=== PATIENT | male | born 1985 | race African-American/Black ===

== ENCOUNTER 2022-12-13 06:34 | Emergency (ER) | payer OTHER, SELFPAY ==
--- NOTE | ~2022-12-13 | XR_ITS ---
EXAMINATION: XR CHEST CLINICAL INFORMATION: Chest pain. COMPARISON: None available. TECHNIQUE: 2 views of the chest were obtained. FINDINGS: The lungs are well expanded. No focal consolidation. No pleural effusion. Cardiac silhouette is within normal limits. XR/XR chest 2V IMPRESSION: No acute abnormality.
--- NOTE | 2022-12-13 06:41 | ECG_ITS ---
Test Reason : CHEST PAIN Blood Pressure : / mmHG Vent. Rate : 075 BPM Atrial Rate : 075 BPM P-R Int : 176 ms QRS Dur : 082 ms QT Int : 360 ms P-R-T Axes : 076 066 060 degrees QTc Int : 402 ms Normal sinus rhythm Normal ECG No previous ECGs available Referred By: Generic ED Physician Electronically Signed By:Jayesh Soliman
--- NOTE | 2022-12-13 06:44 | ED.GENADULT ---
HPI - General Adult General Chief complaint: Chest Pain Stated complaint: chest pain diff breathing Time Seen by Provider: 12/13/22 06:45 Source: patient Mode of arrival: ambulatory Limitations: no limitations History of Present Illness HPI narrative: Patient is a 36-year-old male with no reported past medical history presenting to the emergency department with complaint of midsternal chest pain since Tuesday. 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 States his symptoms began while moving furniture and worsened with this activity. Upon arrival to ED reported shortness of breath, however, when clarified he states that last night he noted that his pain worsened with breathing. He denies any recent cough or fevers. Denies any personal or family history of blood clots. Denies any calf pain, swelling or tenderness. He denies any abdominal pain, nausea or vomiting. He describes his pain as aching, intermittent, and worse with movement. He reports using naproxen for his discomfort with temporary relief. MD complaint: Chest pain Onset (ago): day(s) Location: chest Radiation: non-radiation Quality: aching Pain Consistency: intermittent Relieving factors: rest Exacerbating factors: movement Associated symptoms: denies other symptoms Treatments prior to arrival: NSAID Related Data Allergies Allergy/AdvReac Type Severity Reaction Status Date / Time No Known Allergies Allergy Verified 12/13/22 07:08 Review of Systems Review of Systems: As per HPI. Yes all other systems are reviewed and are negative Constitutional: Constitutional: Reports as per HPI PMF Social History Social History Smoked in Last 30 Days: No Use of substances other than those prescribed or required for medical reasons: No Advance Directives: No Advance Directives Information Provided: No Physical Exam ED Vital Signs: Vital Signs - 24 hr 12/13/22 07:08 Temperature 98.8 F Pulse Rate 68 Respiratory Rate 12 Pulse Oximetry 98 Oxygen Delivery Method Room Air BMI result Body Mass Index 25.2 Vital signs have been reviewed and appear to be correct. Blood pressure normal. Heart rate normal. Respiratory rate normal. Temperature normal. Oxygen saturation normal. Const General: cooperative, healthy appearing and no acute distress Orientation/consciousness: oriented to person, oriented to place, oriented to time and patient oriented x3 Limitations: no limitations HENMT Head: Yes normocephalic and Yes atraumatic Ears: external ears normal General nose exam: Normal external nose present Face and sinus: Yes face symmetric Mouth: oropharynx normal and moist mucous membranes Throat: Yes uvula midline Eyes Pupils: Equal, round and reactive pupils present Neck Neck: Yes normal visual inspection and Yes supple Chest Chest palpation & inspection: normal inspection of the chest and tenderness (costosternal joints) Resp Effort & Inspection: normal respiratory effort and able to speak in complete sentences Auscultation: clear to auscultation bilaterally Cardio Rate: regular rate Rhythm: regular rhythm Heart sounds: S1 normal heart sound present and S2 normal heart sound present GI Palpation (GI): Soft to palpation and nontender Auscultation: normoactive bowel sounds General: Yes no CVA tenderness Back/Spine/Pelvis Back: no CVA tenderness Skin General skin exam: elasticity normal and turgor normal Neuro General: oriented to person, oriented to place, oriented to time, patient oriented x3, moves all extremities, no focal motor deficits and CN's II-XI intact bilaterally Cranial nerves: Yes Equal, round and reactive pupils present Cognition (Neuro): normal cognition Extrem General: Yes full ROM, Yes no pedal edema and Yes no calf tenderness Psych Mental Status: mental status grossly normal Affect: normal affect Thought process: Normal thought process present Medical Decision Making Medical Decision Making MDM Narrative: Patient is a 36-year-old male with no reported past medical history presenting to the emergency department with complaint of midsternal chest pain since Tuesday. On exam patient is awake, A+Ox3, VS WNL, afebrile, normal neurological exam without focal deficits, RRR, LS CTA throughout, tenderness over costosternal joints, abdomen soft and nontender, no calf swelling or tenderness. Given reported symptoms and physical exam findings, differential includes ACS, costochondritis, pneumothorax. Less likely pneumonia. PE unlikely based on PERC rule. Labs notable for no leukocytosis, negative troponin. HEART score 0. X-ray notable for no acute abnormalities. My interpretation is in agreement with the radiologist's interpretation. Feel patient is stable for discharge home at this time, symptoms likely related to costochondritis. All results discussed and all questions answered. Return precautions discussed at bedside. Advised Tylenol and ibuprofen as needed for pain. Instructed patient to follow-up with PCP. Patient verbalized understanding of an agreement of plan. Differential Diagnosis Differential Diagnoses: The differential diagnosis associated with the presentation includes costochondritis, ACS, pneumonia, pneumothorax Admission/Observation Consideration of admission/observation: Escalation of care including admission/observation considered Considered on arrival based on complaint of chest pain. Lab Data MDM Lab Attestation statement: I reviewed the patient's lab results. no leukocytosis, negative troponin 12/13/22 07:26 12/13/22 07:26 Labs: Lab Results 12/13/22 12/13/22 12/13/22 Range/Units 07: 07: 07:26 WBC 7.0 (4.8-10.8) X10*3/uL RBC 4.70 (4.60-5.80) X10*6/uL Hgb 14.1 (14.0-18.0) g/dl Hct 42.9 (42.0-52.0) % MCV 91.3 (80.0-98.0) fL MCH 30.0 (27.0-33.0) pg MCHC 32.9 (31.0-36.0) g/dl RDW 13.8 (11.0-16.0) % Plt Count 179 (160-400) X10*3/uL MPV 11.9 (9.4-12.4) fL Immature Gran % (Auto) Cancelled Neut % (Auto) Cancelled Lymph % (Auto) Cancelled [place] % (Auto) Cancelled Eos % (Auto) Cancelled Baso % (Auto) Cancelled Lymph # (Auto) Cancelled [place] # (Auto) Cancelled Eos # (Auto) Cancelled Baso # (Auto) Cancelled Abs Immat Gran (auto) Cancelled Absolute Neuts (auto) Cancelled Absolute Nucleated RBC 0.000 (0.0-0.012) X10*3/uL Nucleated RBC % (auto) 0.0 (0.0-0.2) /100WBC Neutrophils % (Manual) 78 H (45-73) % Band Neutrophils % 0 L (3-5) % Lymphocytes % (Manual) 14 L (20-40) % Monocytes % (Manual) 3 (2-11) % Eosinophils % (Manual) 3 (0-4) % Basophils % (Manual) 2 (0-2) % Abs Neuts (Manual) 5.5 (2.0-8.3) X10*3/uL Lymphocytes # (Manual) 1.0 L (1.2-4.9) X10*3/uL Monocytes # (Manual) 0.2 (0.1-1.2) X10*3/uL Eosinophils # (Manual) 0.2 (0.0-0.4) X10*3/uL Basophils # (Manual) 0.1 (0.0-0.2) X10*3/uL Platelet Estimate NORMAL (NORMAL) Plt Morphology Comment NORMAL RBC Morphology NORMAL Sodium 141 (135-145) mmol/L Potassium 4.2 (3.3-5.1) mmol/L Chloride 108 (96-108) mmol/L Carbon Dioxide 26 (22-29) mmol/L Anion Gap 11 L (12-20) BUN 10 (9-16) mg/dL Creatinine 1.06 (0.5-1.4) mg/dL Estim Creat Clear Calc 104.5 Estimated GFR > 60 Random Glucose 117 H (60-115) mg/dL Calcium 9.4 (8.4-10.2) mg/dL Troponin I High Sens < 2.7 (<3.5-35.0) ng/L Independent Interpretation I performed an independent interpretation of an: EKG and Plain X-Ray Interpretation: EKG: Normal sinus rhythm. Rate 75bpm. Normal CO and QT intervals. No evidence of STEMI. CXR: no acute findings Radiology Impression Discussion of test interpretation with radiology: I have reviewed the radiologist's reading. Radiologist Impression: XR/XR chest 2V IMPRESSION: No acute abnormality. External Record Review External record reviewed: Inpatient record, Office record and Outpatient record Scores Heart Score History: -0- slightly suspicious ECG: -0- normal Age: -0- < or = 45 Risk factory: -0- no risk factors known Troponin: -0- < or = normal limit Score: 0 Risk: 1.7% Discharge Plan Discharge Clinical Impression: Chest pain, Acute costochondritis Patient Disposition: Home, Self-Care Instructions: Costochondritis (ED), Chest Pain (DC) Additional Instructions: You were evaluated in the emergency department today for chest pain. Your evaluation has shown no signs of medical conditions requiring emergent intervention at this time, however we recommend that you follow-up with your primary care physician. Your symptoms are likely related to costochondritis. You can use 600mg ibuprofen or 650mg Tylenol as needed for pain. If necessary may alternate these medications every 4 hours. For example, at noon take ibuprofen, then at 4:00 p.m. take Tylenol, then at 8:00 p.m. take ibuprofen. Return to the emergency department if you experience worsening or uncontrolled chest pain, shortness of breath, lightheadedness, feeling faint, loss of consciousness, nausea, vomiting, or any other concerning symptoms.
[2022-12-13 07:08] VITALS: PULSE 68; RESP 12; TEMP 37.1; O2SAT 98; BMI 25.2
[2022-12-13 07:33] LABS: Hematocrit 42.9 % (42.0-52.0); Hemoglobin 14.1 g/dl (14.0-18.0); Mean Corpuscular HGB Conc 32.9 g/dl (31.0-36.0); Mean Corpuscular Volume 91.3 fL (80.0-98.0); Mean Platelet Volume 11.9 fL (9.4-12.4); Platelet Count 179 X10*3/uL (160-400); Red Cell Distribution Width 13.8 % (11.0-16.0); WBC ABN SCTR FOR CBC 1
[2022-12-13 07:44] LABS: Anion Gap 11 (12-20); Blood Urea Nitrogen 10 mg/dL (9-16); Calcium 9.4 mg/dL (8.4-10.2); Carbon Dioxide 26 mmol/L (22-29); Chloride 108 mmol/L (96-108); Creatinine Clr Calc Pharmacy 104.5; Estimated Glomerular Filt Rate > 60; Glucose Random 117 mg/dL (60-115); Potassium 4.2 mmol/L (3.3-5.1); Sodium 141 mmol/L (135-145)
[2022-12-13 07:58] LABS: Basophils Percent Manual 2 % (0-2); Eosinophils Percent Manual 3 % (0-4); Lymphocytes Percent Manual 14 % (20-40); Monocytes Percent Manual 3 % (2-11); Neutrophils Percent Manual 78 % (45-73)
[2022-12-13 08:01] LABS: Platelet Estimate NORMAL (NORMAL); Platelet Morphology Comment NORMAL; RBC Morphology NORMAL
[2022-12-13 08:02] LABS: Basophils Abs Manual 0.1 X10*3/uL (0.0-0.2); Eosinophils Absolute Manual 0.2 X10*3/uL (0.0-0.4); Monocytes Absolute Manual 0.2 X10*3/uL (0.1-1.2)
[2022-12-13 08:05] LABS: Troponin-I High Sensitivity < 2.7 ng/L (<3.5-35.0)
[2022-12-13 08:32] LABS: Band Neutrophils Percent 0 % (3-5); Neutrophils Absolute Manual 5.5 X10*3/uL (2.0-8.3)
== END 2022-12-13 09:44 | disposition home or self-care (01) ==
PROVIDERS: Emergency Provider Emergency Medicine; PCP Nurse Practitioner Family
DX: Z04.2 Encounter for examination and observation following work accident (principal); M94.0 Chondrocostal junction syndrome [Tietze]; R07.9 Chest pain, unspecified; R06.02 Shortness of breath
CPT/HCPCS: 36415; 71046; 80048; 84484; 85007; 85027; 93005; 99284; 99285

== ENCOUNTER → 2022-12-13 06:41 | Outpatient (BNV) | payer SELFPAY | PROVIDERS: Emergency Provider Emergency Medicine; PCP Nurse Practitioner Family; Visit Provider Internal Medicine Cardiovascular Disease | DX: R07.9 Chest pain, unspecified (principal) | CPT/HCPCS: 93010 ==

== ENCOUNTER 2024-10-10 17:17 | Emergency (ER) | payer OTHER, SELFPAY ==
[2024-10-10 17:29] VITALS: BP 122/90; PULSE 95; RESP 18; TEMP 36.6; O2SAT 97; BMI 22.9
--- NOTE | 2024-10-10 17:29 | ED.GENADULT ---
HPI - General Adult General Chief complaint: General Medical Stated complaint: high blood pressure 151/101 Time Seen by Provider: 10/10/24 19:25 Source: patient Mode of arrival: ambulatory Limitations: no limitations History of Present Illness ED Provider: HPI narrative: Patient's strong family history of hypertension but patient does not have any hypertension in the past at dentist's office prior to procedure blood pressure was elevated to 151/101 patient is asymptomatic as such no chest pain no shortness a breath not on any caffeinated drinks on arrival in the ED patient's blood pressure was 142/90 Related Data Allergies Allergy/AdvReac Type Severity Reaction Status Date / Time No Known Allergies Allergy Verified 10/10/24 17:30 Review of Systems Review of Systems: Yes all other systems are reviewed and are negative [facility] Social History Social History Smoked in Last 30 Days: No Use of substances other than those prescribed or required for medical reasons: No Advance Directives: No Advance Directives Information Provided: Yes Do you have a plan to hurt others: No Plan Physical Exam ED Vital Signs: Vital Signs - 24 hr 10/10/24 17:29 10/10/24 19:14 10/10/24 20:18 Temperature 98 F 97.9 F Pulse Rate 95 73 59 Respiratory Rate 18 16 Blood Pressure 122/90 H 131/92 H 138/86 Pulse Oximetry 97 100 Oxygen Delivery Method Room Air Room Air 10/10/24 20:42 Temperature 97.9 F Pulse Rate 59 Respiratory Rate 16 Blood Pressure 138/86 Pulse Oximetry 100 Oxygen Delivery Method Room Air BMI result Body Mass Index 22.9 Appearance: Alert. Oriented X3. No acute distress. Eyes: PERRLA, No Nystagmus ENT: Pharynx normal. Oral Mucosa moist Neck: Normal inspection. Neck supple. CVS: Normal heart rate and rhythm. Pulses normal. Respiratory: No respiratory distress. Equal air entry bilateral, no wheezing/rales/rhonchi Abdomen: Soft and nontender. Bowel sounds are present, no mass palpable, no CVA tenderness Skin: Skin warm and dry. Normal skin color. Normal skin turgor. Extremities: No lower extremity edema. No calf tenderness Neuro: Oriented X 3. No motor deficit. No sensory deficit.No cerebellar signs , cranial nerves II-XII intact Course Course Course Narrative: This is a rapid medical exam performed by Hina Burton NP: Additional HPI, ROS, PE not included below will be deferred to primary provider. Patient is a 38-year-old male presenting with report of elevated blood pressure reading at the dentist (150/100). Denies hx of HTN. No pain at this time. 122/90 here. Sees PCP annually, never been told his BP was high before. Was feeling somewhat stressed there as he had to get to work. Plan: EKG, labs Medical Decision Making Medical Decision Making MDM Narrative: Patient's transient hypotension during stay in the ER patient's blood pressure improved to 135/86 does have a strong family history of hypotension patient advised to decrease the salt intake and follow with PCP in 2 weeks and check blood pressure twice a day Lab Data [facility] Lab Attestation statement: I reviewed the patient's lab results. 10/10/24 17:57 10/10/24 17:57 Labs: Lab Results 10/10/24 Range/Units 17:57 WBC 8.2 (4.8-10.8) X10*3/uL RBC 4.56 L (4.60-5.80) X10*6/uL Hgb 13.6 L (14.0-18.0) g/dl Hct 41.3 L (42.0-52.0) % MCV 90.6 (80.0-98.0) fL MCH 29.8 (27.0-33.0) pg MCHC 32.9 (31.0-36.0) g/dl RDW 13.6 (11.0-16.0) % Plt Count 187 (160-400) X10*3/uL MPV 11.6 (9.4-12.4) fL Immature Gran % (Auto) 0.9 H (0.0-0.4) % Neut % (Auto) 66.1 (45-73) % Lymph % (Auto) 23.2 (20-40) % [place] % (Auto) 5.6 (2-11) % Eos % (Auto) 3.6 (0-4) % Baso % (Auto) 0.6 (0-2) % Lymph # (Auto) 1.9 (1.2-4.9) X10*3/uL [place] # (Auto) 0.5 (0.1-1.2) X10*3/uL Eos # (Auto) 0.3 (0.0-0.4) X10*3/uL Baso # (Auto) 0.1 (0.0-0.2) X10*3/uL Abs Immat Gran (auto) 0.07 H (0.00-0.03) X10*3/uL Absolute Neuts (auto) 5.4 (2.0-8.3) x10*3/uL Absolute Nucleated RBC 0.000 (0.0-0.012) X10*3/uL Nucleated RBC % (auto) 0.0 (0.0-0.2) /100WBC Sodium 140 (135-145) mmol/L Potassium 4.0 (3.3-5.1) mmol/L Chloride 110 H (96-108) mmol/L Carbon Dioxide 24 (22-29) mmol/L Anion Gap 10 L (12-20) BUN 10 (9-16) mg/dL Creatinine 0.99 (0.5-1.4) mg/dL Estim Creat Clear Calc 108.5 Estimated GFR > 60 Random Glucose 94 (60-115) mg/dL Calcium 8.9 (8.4-10.2) mg/dL Total Bilirubin 0.5 (0.0-1.0) mg/dL AST 28 (5-37) U/L ALT 31 (0-40) U/L Alkaline Phosphatase 90 (39-117) U/L Troponin I High Sens < 2.7 (<3.5-35.0) ng/L Total Protein 6.8 (6.5-8.0) g/dL Albumin 4.0 (3.5-5.0) g/dL Independent Interpretation I performed an independent interpretation of an: EKG Interpretation: Normal sinus rhythm heart rate 83 beats per minute LVH no acute STT wave changes no acute ischemia Discharge Plan Discharge Clinical Impression: Hypertension Patient Disposition: Home, Self-Care Instructions: Low-Sodium Diet (ED), Hypertension (ED) Additional Instructions: Possible you have borderline hypertension Decrease salt intake Check blood pressure twice a day it should be less than 135/85 if blood pressure persistently high follow up with your PCP for treatment Interventions: ED Discharge Assessment Last Done: 10/10/24 20:42 Discharge Date/Time: 10/10/24 20:43 Print Language: American
--- NOTE | 2024-10-10 17:31 | ECG_ITS ---
Test Reason : HYPERTENTION Blood Pressure : */* mmHG Vent. Rate : 83 BPM Atrial Rate : 83 BPM P-R Int : 164 ms QRS Dur : 78 ms QT Int : 338 ms P-R-T Axes : 80 57 42 degrees QTcB Int : 397 ms Normal sinus rhythm Minimal voltage criteria for LVH, may be normal variant ( Sokolow-Hamlin ) Borderline ECG When compared with ECG of 13-Dec-2022 06:41, No significant change was found Referred By: Shanelle Burton Electronically Signed By: JERRY VÁSQUEZ MD
[2024-10-10 18:05] LABS: MANUAL DIFF FLAG NO
[2024-10-10 18:22] LABS: Basophils Absolute Auto 0.1 X10*3/uL (0.0-0.2); Basophils Percent Auto 0.6 % (0-2); Eosinophils Absolute Auto 0.3 X10*3/uL (0.0-0.4); Eosinophils Percent Auto 3.6 % (0-4); Hematocrit 41.3 % (42.0-52.0); Hemoglobin 13.6 g/dl (14.0-18.0); Imm Gran Abs Auto 0.07 X10*3/uL (0.00-0.03); Imm Gran Pct Auto 0.9 % (0.0-0.4); Lymphocytes Absolute Auto 1.9 X10*3/uL (1.2-4.9); Lymphocytes Percent Auto 23.2 % (20-40); Mean Corpuscular HGB Conc 32.9 g/dl (31.0-36.0); Mean Corpuscular Hemoglobin 29.8 pg (27.0-33.0); Mean Corpuscular Volume 90.6 fL (80.0-98.0); Mean Platelet Volume 11.6 fL (9.4-12.4); Monocytes Absolute Auto 0.5 X10*3/uL (0.1-1.2); Monocytes Percent Auto 5.6 % (2-11); Neutrophils Absolute Auto 5.4 x10*3/uL (2.0-8.3); Neutrophils Percent Auto 66.1 % (45-73); Platelet Count 187 X10*3/uL (160-400); Red Blood Count 4.56 X10*6/uL (4.60-5.80); Red Cell Distribution Width 13.6 % (11.0-16.0); White Blood Count 8.2 X10*3/uL (4.8-10.8)
[2024-10-10 18:33] LABS: Troponin-I High Sensitivity < 2.7 ng/L (<3.5-35.0)
[2024-10-10 18:34] LABS: Alanine Aminotransferase 31 U/L (0-40); Anion Gap 10 (12-20); Aspartate Amino Transferase 28 U/L (5-37); Bilirubin Total 0.5 mg/dL (0.0-1.0); Blood Urea Nitrogen 10 mg/dL (9-16); Calcium 8.9 mg/dL (8.4-10.2); Carbon Dioxide 24 mmol/L (22-29); Chloride 110 mmol/L (96-108); Creatinine Clr Calc Pharmacy 108.5; Estimated Glomerular Filt Rate > 60; Glucose Random 94 mg/dL (60-115); Sodium 140 mmol/L (135-145); Total Protein 6.8 g/dL (6.5-8.0)
[2024-10-10 18:47] LABS: Alkaline Phosphatase 90 U/L (39-117)
[2024-10-10 19:14] VITALS: BP 131/92; PULSE 73
[2024-10-10 20:18] VITALS: BP 138/86; PULSE 59; RESP 16; TEMP 36.6; O2SAT 100
[2024-10-10 20:42] VITALS: BP 138/86; PULSE 59; RESP 16; TEMP 36.6; O2SAT 100
== END 2024-10-10 20:43 | disposition home or self-care (01) ==
PROVIDERS: Registered Nurse Emergency; Emergency Provider Internal Medicine; PCP Nurse Practitioner Family
DX: I10 Essential (primary) hypertension (principal); R94.31 Abnormal electrocardiogram [ECG] [EKG]; Z79.899 Other long term (current) drug therapy
CPT/HCPCS: 36415; 80053; 84484; 85025; 93005; 99283; 99284

== ENCOUNTER → 2024-10-10 17:31 | Outpatient (BNV) | payer OTHER, SELFPAY | PROVIDERS: Emergency Provider Internal Medicine; PCP Nurse Practitioner Family; Visit Provider Internal Medicine Cardiovascular Disease | DX: I10 Essential (primary) hypertension (principal) | CPT/HCPCS: 93010 ==